=== PATIENT | male | born 1975 | race Caucasian/White ===

== ENCOUNTER 2020-07-21 03:40 | Emergency (ER) | payer BC ==
[~2020-07-21] VITALS: Ht 182.9 cm; Wt 104.5 kg
[2020-07-21 03:52] VITALS: BP 142/100
[2020-07-21] MEDS ORDERED: ketorolac trometh. 30mg/ml inj. IV ONE (04:05)
[2020-07-21] MEDS ORDERED: LORazepam 2 mg/ml vial IV ONE (04:05)
[2020-07-21] MEDS ORDERED: morphine 4 MG/ML inj SYRINge IV PRN (04:05)
[2020-07-21] MEDS ORDERED: ondansetron/PF 4mg/2ml inj IV ONE (04:05)
[2020-07-21] MEDS ORDERED: normal saline 1000ML IV soln IVB ONE (04:05)
[2020-07-21 04:24] LABS: BASOPHILS # (AUTO) 0.1 X10'3 (0-0.2); BASOPHILS % (AUTO) 1.1 % (0-1); EOSINOPHILS # (AUTO) 0.2 X10'3 (0-0.9); EOSINOPHILS % (AUTO) 2.2 % (0-6); HEMATOCRIT 45.5 % (42.0-52.0); HEMOGLOBIN 15.4 g/dl (14.0-17.9); LYMPHOCYTES # (AUTO) 3.3 X10'3 (1.1-4.8); LYMPHOCYTES % (AUTO) 33.2 % (21-51); MEAN CORPUSCULAR HGB CONC 33.9 g/dL (33.0-36.5); MEAN CORPUSCULAR VOLUME 94.6 FL (78-98); MEAN PLATELET VOLUME 7.7 FL (7.4-10.4); MONOCYTES % (AUTO) 10.5 % (2-12); NEUTROPHILS # (AUTO) 5.2 X10'3 (1.8-7.7); PLATELET COUNT 332 X10'3 (140-440); RED BLOOD COUNT 4.81 X10'6 (4.70-6.10); RED CELL DISTRIBUTION WIDTH 13.6 % (11.5-14.5); WHITE BLOOD COUNT 9.9 X10'3 (4.5-11.0)
[2020-07-21 04:37] LABS: ALANINE AMINOTRANSFERASE 61 U/L (12-78); ALBUMIN 4.3 G/DL (3.4-5.0); ALBUMIN/GLOBULIN RATIO 1.3 (1.1-1.5); ALKALINE PHOSPHATASE 63 IU/L (46-116); ANION GAP 8 (8-16); ASPARTATE AMINO TRANSFERASE 56 U/L (10-37); BILIRUBIN,TOTAL 0.6 MG/DL (0.1-1.0); BLOOD UREA NITROGEN 11 MG/DL (7-18); BUN/CREATININE RATIO 8.8 (5.4-32.0); CHLORIDE 106 MMOL/L (99-107); CREATININE 1.25 MG/DL (0.60-1.10); GLUCOSE 119 MG/DL (70-104); LIPASE 444 U/L (73-393); POTASSIUM 4.2 MMOL/L (3.5-5.1); SODIUM 142 MMOL/L (135-145); TOTAL CARBON DIOXIDE 27.9 MMOL/L (24-32); TOTAL PROTEIN 7.7 G/DL (6.4-8.2); eGFR 63 ML/MIN
[2020-07-21 05:08] LABS: CLARITY,URINE SLIGHTLY CLOUDY (Clear); COLOR,URINE YELLOW (Yellow); GLUCOSE, URINE NEGATIVE (Neg); KETONES,URINE NEGATIVE (Neg); LEUKOCYTE ESTERASE ,URINE NEGATIVE (Neg); NITRITES, URINE NEGATIVE (Neg); OCCULT BLOOD,URINE MODERATE (Neg); PH,URINE 7.5 (4.8-8.0); PROTEIN,URINE NEGATIVE (Neg); UROBILINOGEN,URINE 0.2 E.U/dL (0.2-1.0)
[2020-07-21 05:10] LABS: UA COLLECTION TYPE CLN CATCH MIDSTREAM
[2020-07-21 05:15] LABS: BACTERIA,URINE NONE SEEN /HPF (Neg); MUCUS STRANDS NONE SEEN /LPF (Neg); RBC,URINE 20-50 /HPF (0-2); SQUAMOUS EPITHELIAL CELL,UR NONE SEEN /LPF (FEW); WBC,URINE 0-4 /HPF (0-4)
== END 2020-07-21 05:09 | disposition home or self-care (01) ==
LOC: ER 03:41
DX: N20.0 Calculus of kidney (principal); R10.32 Left lower quadrant pain; R11.0 Nausea; F12.90 Cannabis use, unspecified, uncomplicated
CPT/HCPCS: 36415; 74176; 80053; 81001; 83690; 85025; 96361; 96374; 96375; 99284; J1885; J2060; J2405; J7030

== ENCOUNTER 2025-08-13 03:29 | Emergency (ER) | payer BC ==
[~2025-08-13] VITALS: Ht 180.3 cm; Wt 111.8 kg
[2025-08-13 03:33] VITALS: BP 158/93; TEMP 97.8
[2025-08-13] MEDS: ketorolac trometh 30MG/ML vial 30 MG/ML VIAL IV ONE (03:45)
[2025-08-13] MEDS: ondansetron/PF 4mg/2ml inj IV ONE (03:45)
--- NOTE | 2025-08-13 03:49 | Physician Documentation ---
History of Present Illness General Chief Complaint: Flank Pain Stated Complaint: KIDNEY PAIN Time Seen by MD: 03:43 History of Present Illness Initial Comments This is a 49-year-old gentleman with a known history of prior kidney stones, presents for evaluation of left flank pain that woke him from sleep proximally 2 hours prior to arrival. The pain is severe in its intensity, sharp, waxing and waning, accompanied by severe nausea, similar to prior kidney stones. Located in the left flank. Did not attempt to treat it. Denies any chest pain, difficulty breathing, denies actual vomiting. Denies headache. He uses marijuana. Medication Reconciliation Allergies: Uncoded Allergies: PENICLLIN (Allergy, Unknown, 08/13/25) Past Medical History Past Medical History: No Pertinent History Past Surgical History: noncontributory Drug Use: marijuana Lives In: Home Review of Systems ROS 10 point review of systems was performed and unless noted above in HPI is negative for acute process/complaint. Physical Exam Physical Exam Vital Signs: Temperature: 97.8, Source: Oral, Heart Rate: 74, Respiratory Rate: 16, BP: 158/93, Pulse Oximetry: 99, Weight: 111.800 Oxygen Flow Rate: 0 Physical Exam GENERAL: Awake, alert, oriented, GCS 15, moderate pain related distress, diapho retic and uncomfortable appearing, answers questions, follows commands appropriately. Examined in triage HEENT: Atraumatic, normocephalic, pupils equal, extraocular muscles intact, sclerae anicteric, mucus membranes moist, oropharynx is clear, no stridor. NECK: supple, full active range of motion, trachea midline, no thyromegaly, no lymphadenopathy, no JVD. CARDIOVASCULAR: regular rate/rhythm, no murmurs/gallops/rubs, Pulses are 2+ in all extremities and symmetric. Capillary refill less than 2 seconds. PULMONARY: Nonlabored, good air movement ,no respiratory distress, speaking in full sentences, clear to auscultation bilaterally, no wheezing, no ronchi, no rales, no accessory muscle use. GASTROINTESTINAL: Soft, non-tender, non-distended, normal active bowel sounds, no organomegaly, no pulsatile masses, no CVA tenderness. NEUROLOGIC: Lucid with normal mental status. Normal facial symmetry. Moves all extremities symmetrically and with purpose. No truncal ataxia. Speech is fluid without evidence of dysarthria or aphasia, no focal deficits appreciated. MUSCULOSKELETAL: There is full range of motion of all extremities. There is no joint pain or joint swelling or joint erythema. There is no muscle pain or tenderness or swelling. EXTREMITIES: warm, well-perfused, no cyanosis, no clubbing, no edema, no acute deformities. Skin: warm, dry, no rashes or lesions, no jaundice, no petechiae orpurpura. No ecchymosis. PSYCHIATRIC: Normal affect, normal insight, normal concentration. Focused exam: [] Progress Results/Orders Results/Orders Orders - JAVIER HARDING DO Urinalysis, Cult If Indicated (08/13/25 03:35) Ct Abdomen Pelvis (08/13/25 03:43) Hs Troponin I W Calculations (08/13/25 05:43) Completed Orders - JAVIER HARDING DO Cbc/Diff (08/13/25 03:35) Procalcitonin (08/13/25 03:35) Lipase (08/13/25 03:35) CMP (08/13/25 03:35) Ondansetron Inj. (Zofran 4mg/2ml Vial) (08/13/25 03:45) Ketorolac Trometh 30mg/Ml Vial (Toradol (08/13/25 03:45) Electrocardiogram (08/13/25 03:43) Hs Troponin I W Calculations (08/13/25 03:43) Vital Signs 08/13/25 03:33 Temp 97.8 Pulse 74 Resp 16 B/P (MAP) 158/93 Pulse Ox 99 O2 Flow Rate 0 Laboratory Tests Test 08/13/25 03:48 White Blood Count 10.8 Red Blood Count 4.52 L Hemoglobin 14.5 Hematocrit 41.6 L Mean Corpuscular Volume 92.0 Mean Corpuscular Hemoglobin 32.0 H Mean Corpuscular Hemoglobin Concent 34.8 Red Cell Distribution Width 13.8 Platelet Count 312 Mean Platelet Volume 8.3 Neutrophils (%) (Auto) 59.2 Lymphocytes (%) (Auto) 27.2 Monocytes (%) (Auto) 9.7 Eosinophils (%) (Auto) 3.1 Basophils (%) (Auto) 0.8 Neutrophils # (Auto) 6.4 Lymphocytes # (Auto) 2.9 Monocytes # (Auto) 1.0 H Eosinophils # (Auto) 0.3 Basophils # (Auto) 0.1 CBC Comment Sodium Level 139 Potassium Level 3.7 Chloride Level 103 Carbon Dioxide Level 24.2 Anion Gap 12 Blood Urea Nitrogen 15 Creatinine 1.06 Estimated GFR/1.73 m2 75 BUN/Creatinine Ratio 14.2 Glucose Level 110 H Calcium Level 9.1 Total Bilirubin 0.2 Aspartate Amino Transf (AST/SGOT) 28 Alanine Aminotransferase (ALT/SGPT) 60 Alkaline Phosphatase 74 Troponin I High Sensitivity 7 Total Protein 7.8 Albumin 4.0 Globulin 3.8 Albumin/Globulin Ratio 1.1 Lipase 47 Procalcitonin < 0.05 Chemistry Comments EKG/XRAY/CT/US/VASC/MRI EKG : Additional Comment EKG was obtained and interpreted by myself showing sinus rhythm of 69, normal NM interval, narrow QRS, no QT prolongation, normal axis, no STEMI. Medical Decision Making Additional information obtaine: N/A Findings Facility Status: ED Holds, RME process The plan was discussed with the patient, who demonstrates clear understanding of the plan and is in agreement with the plan unless otherwise noted in the chart. All questions have been answered, all concerns were addressed unless otherwise documented. I was available throughout their ED stay for frequent reassessment and questions. Differential Diagnoses (considered and possible or likely): [Differential diagnosis considered includes renal colic, less likely infected stone, less likely acute appendicitis, acute cholecystitis, pancreatitis, gastritis, PUD, diverticulitis, mesenteric ischemia, abdominal aortic aneurysm, bowel obstruction, enteritis, colitis, fecal impaction, volvulus, IBS, inflammatory bowel disease, specific food intolerance, peritonitis, perforated viscous, malignancy, UTI, abscess, and abdominal pain NOS. History, physical exam, and workup exclude many of the more serious causes listed above. ] ??Differential Diagnoses (considered and unlikely, not requiring evaluation currently): [See above] MDM Data Please see HPI for the following: Independent Historians and external Records Review. Historian: [Patient] Independent Historians: ?[Not applicable] Medication Management: [Reviewed medication list] Social History and determinants: [Reviewed] Please see the body of the note for the following: Any independent interpretations of ECG, imaging studies. All vitals signs/haemodynamics, ordered tests were independently reviewed and interpreted by myself. Nursing triage complaint and vitals reviewed, additional nursing notes were reviewed as available and I agree unless otherwise noted or documented in contradiction in the chart Vital Signs: Independently reviewed Labs: Independently interpreted Imaging: Independently interpreted Old Medical Records: Independently reviewed, see HPI for relevant summary and information Pulse Oximetry: [98%] interpreted as [normal on room air] by me [[place]: [Regular Rate, Regular rhythm, no ectopy, NSR] reviewed and interpreted by me] Additionally notably showing: [] Tests considered but not ordered include: [] Social Determinants of Health Impact: Patient was evaluated in [facility] [place] to healthcare due to below par ratio of patient to medical providers. [] Comorbid Conditions Impacting Present Evaluation and Care/Treatment: [] Management Discussions with other Healthcare Providers: [] Treatment and Disposition Medication Management (Given or considered): []. See EMR for details Consideration for Hospitalization/Escalation/Deescalation of Care: Admission for observation has been considered, [however the patient is able to tolerate p.o., their symptoms are controlled, they are able to rely on oral medications, and their chief complaint/diagnosis can be managed on outpatient basis.] ?ED Course:?[] ?Shared decision making:?[] Code status:?FULL Please see the full Electronic Medical Record for full details of nursing documentation, medications list, other records of complete past medical history and conditions, vital signs, laboratory studies, and any radiologic study interpretations by radiologists. Portions of this note were completed using [employer] dictation software and as a result there may exist minor errors in spelling. I have reviewed elements of past family and social history and agree as included in note. Differential Diagnosis See body of main note for differential diagnosis Departure Disposition: 01 HOME / SELF CARE / HOMELESS Impression: Primary Impression: Kidney stone Condition: Improved Discharge Instructions: Kidney Stones Referrals: NO PRIMARY CARE PROVIDER (PCP) Education Educated: Patient Educated regarding: diagnosis, treatment, prognosis, need for follow up Signature Scribe Signature: No scribe Attestation: The note accurately reflects work and decisions made by me.Javier Harding, 08/13/25 03:49 JAVIER HARDING DO Aug 13, 2025 03:49
--- NOTE | 2025-08-13 04:01 | ELECTROCARDIOGRAPH REPORT ---
[facility] Test Date: 2025-08-13 Test Time: 04:00:44 Pat Name: MARITA HERNÁNDEZ Department: [facility]-ER Patient ID: [id number] Room: Gender: M Mainframe Programmer Analyst: : 1975 Requested By: OTNY HARDING Order Number: [id number] Reading MD: Dr. RAJI Ferrer Measurements Intervals [place] Rate: 69 P: -23 [place]: 138 QRS: 6 QRSD: 103 T: 32 QT: 415 QTc: 445 Interpretive Statements Sinus rhythm Low voltage, precordial leads Electronically Signed On 08-14-2025 18:40:[address] RAJI Ferrer Please click the below link to view image of tracing.
[2025-08-13 04:05] LABS: MEAN PLATELET VOLUME 8.3 FL (7.4-10.4); RED CELL DISTRIBUTION WIDTH 13.8 % (11.5-14.5)
[2025-08-13 04:31] LABS: CREATININE 1.06 MG/DL (0.60-1.10); TOTAL CARBON DIOXIDE 24.2 MMOL/L (24-32); eCRCL 91 ML/MIN; eGFR 75 ML/MIN
[2025-08-13 06:22] LABS: LEUKOCYTE ESTERASE ,URINE NEGATIVE (Neg); OCCULT BLOOD,URINE MODERATE (Neg)
[2025-08-13] MEDS: ketorolac trometh 30MG/ML vial 30 MG/ML VIAL IM ONE (06:27)
[2025-08-13 06:33] LABS: UA COLLECTION TYPE CLN CATCH MIDSTREAM
[2025-08-13 06:34] VITALS: PULSE 89; RESP 24; O2SAT 70
[2025-08-13 06:34] LABS: NITRITES, URINE NEGATIVE (Neg)
[2025-08-13 06:37] LABS: SQUAMOUS EPITHELIAL CELL,UR NONE SEEN /LPF (FEW)
== END 2025-08-13 07:42 | disposition home or self-care (01) ==
LOC: ER 03:29
DX: N20.0 Calculus of kidney (principal); F12.90 Cannabis use, unspecified, uncomplicated; I49.8 Other specified cardiac arrhythmias; Z87.442 Personal history of urinary calculi
CPT/HCPCS: 36415; 80053; 81001; 83690; 84145; 84484; 85025; 93005; 96372; 99284; J1885; J7030; 99285